=== PATIENT | male | born 1965 | race Caucasian/White ===

== ENCOUNTER 2018-04-09 14:27 | Emergency (ER) | payer SELFPAY ==
[2018-04-09 14:29] VITALS: BP 130/90; PULSE 103; RESP 18; TEMP 36.2; O2SAT 99; BMI 23.1
--- NOTE | 2018-04-09 14:47 | ED.RN ---
Pt waiting in triage 2, room getting ready.
[2018-04-09 15:41] LABS: Absolute Lymphocyte Count 1.34 X10^3/ul (0.83-4.51); Absolute Neutrophil Count 3.8 X10^3/uL (2.0-7.7); Basophil# 0.03 X10^3/uL; Basophil% 0.5 % (0-1); Eosinophil# 0.11 X10^3/uL; Eosinophils% 1.9 % (0-5); Hematocrit 47.1 % (40-54); Hemoglobin 16.5 g/dl (13.0-16.5); Lymphocyte # 1.34 X10^3/ul (4.0); Lymphocyte % 23.5 % (19-41); Mean Corpuscular Hgb 32.2 pg (27.0-32.0); Mean Platelet Vol. 9.8 fl (6.2-12.0); Monocyte# 0.41 X10^3/uL; Monocyte% 7.2 % (0-10); Neutrophil # 3.81 X10^3/uL (2.7-7.7); Neutrophil % 66.7 % (47-70); Platelet Count 238 K/mm3 (150-450); RBC Distribution Width CV 12.9 % (11.6-14.6); Red Blood Count 5.12 M/mm3 (4.6-6.2); White Blood Count 5.7 K/mm3 (4.4-11.0)
[2018-04-09 15:52] LABS: Anion Gap 7 (5-15); BUN 12 mg/dL (7-18); BUN/Creat Ratio 10.8 RATIO (10-20); Calcium,Total 9.1 mg/dL (8.5-10.1); Chloride 105 mmol/L (98-107); Creatinine, Serum 1.11 mg/dL (0.70-1.30); EST Glomerular Filtration Rate 74 mL/min (>60); Est Glom Filt Rate - Afr Amer 90 mL/min (>60); Estimated Creatinine Clearance 73.61 ml/min; Glucose 116 mg/dL (74-106); Potassium 3.7 mmol/L (3.5-5.1); Sodium Level 139 mmol/L (136-145)
--- NOTE | 2018-04-09 15:53 | ED.VISSUMM ---
- ER Visit Summary Date of Service: 04/09/18 Chief Complaint: Breast and suicidal History of Present Illness: The patient is a 53 M past medical history of depression, anxiety and hypertension. Currently is on an antidepressant he does not know the name of it. He states he is not seeing the counseling center. States recently he and his girlfriend of 4 years broke up. This is making him more depressed. He denies any suicide attempt. Said he did think of taking all his medications. He called the suicide hotline. Who had the police arrived at his home and paramedics and they brought him in. He was pink slipped. He states now that he is not suicidal. Ever having a suicide attempt. Or ever needing to be hospitalized for psychiatric care. Physical Examination: Well-appearing middle-age male. Vital signs are stable and afebrile. He is calm and cooperative. He is in no distress. There is no alcohol and no signs of toxidrome. HEENT exam unremarkable. No signs of trauma. Pupils round reactive light. Neck nontender. No signs of ligature barba. Or trauma. Lungs clear to auscultation bilaterally. Heart regular rhythm no murmur. Chest wall nontender. Abdomen soft nontender. Patient is moving all 4 extremities. Neurovascular intact. No signs of trauma. No track barba. Back nontender. Neurologically he is awake and alert. No focal motor deficits. Test Results: ED mental health screening labs. CBC normal. BMP normal. Tox screen negative. Alcohol negative. Emergency Department Course and Treatment: Patient will be evaluated by crisis and disposition will be determined. Currently at this time he does not seem to be in distress or actively suicidal. It is concerning with the threat that he did make. On repeat exam patient is doing well at 1615 p.m. Treatment Plan: Patient will be turned over to the afternoon physician. Awaiting crisis evaluation. Disposition: [] Impression: Acute on chronic depression Suicidal ideation This note was generated with [employer] dictation software. It may contain incorrect words, spelling, and punctuation that were not noted in review of the chart prior to signing ED Disposition - Plan for ED Patient: Chief Complaint: Suicidal Referrals: Juan F Tellez MD [Primary Care Provider] -
[2018-04-09 15:57] LABS: POSITIVE COUNT NO; POSITIVE DIFFERENTIAL NO; POSITIVE MORPHOLOGY NO
--- NOTE | 2018-04-09 15:59 | ED.DCSUM_ITS ---
- ER Visit Summary Date of Service: 04/09/18 Chief Complaint: Breast and suicidal History of Present Illness: The patient is a 53 M past medical history of depression, anxiety and hypertension. Currently is on an antidepressant he does not know the name of it. He states he is not seeing the counseling center. States recently he and his girlfriend of 4 years broke up. This is making him more depressed. He denies any suicide attempt. Said he did think of taking all his medications. He called the suicide hotline. Who had the police arrived at his home and paramedics and they brought him in. He was pink slipped. He states now that he is not suicidal. Ever having a suicide attempt. Or ever ne eding to be hospitalized for psychiatric care. Physical Examination: Well-appearing middle-age male. Vital signs are stable and afebrile. He is calm and cooperative. He is in no distress. There is no alcohol and no signs of toxidrome. HEENT exam unremarkable. No signs of trauma. Pupils round reactive light. Neck nontender. No signs of ligature barba. Or trauma. Lungs clear to auscultation bilaterally. Heart regular rhythm no murmur. Chest wall nontender. Abdomen soft nontender. Patient is moving all 4 extremities. Neurovascular intact. No signs of trauma. No track barba. Back nontender. Neurologically he is awake and alert. No focal motor deficits. Test Results: ED mental health screening labs. CBC normal. BMP normal. Tox screen negative. Alcohol negative. Emergency Department Course and Treatment: Patient will be evaluated by crisis and disposition will be determined. Currently at this time he does not seem to be in distress or actively suicidal. It is concerning with the threat that he did make. On repeat exam patient is doing well at 1615 p.m. Treatment Plan: Patient will be turned over to the afternoon physician. Awaiting crisis evaluation. Disposition: [] Impression: Acute on chronic depression Suicidal ideation This note was generated with [employer] dictation software. It may contain incorrect words, spelling, and punctuation that were not noted in review of the chart prior to signing ED Disposition - Plan for ED Patient: Chief Complaint: Suicidal Referrals: Juan F Tellez MD [Primary Care Provider] -
[2018-04-09 16:08] LABS: Amphetamine Urine VISTA NEGATIVE (<1000 ng/mL); Barbiturate Urine VISTA NEGATIVE (< 200 ng/mL); Benzodiazepine Urine VISTA NEGATIVE (< 200 ng/mL); Cocaine Urine VISTA NEGATIVE (< 300 ng/mL); Ecstacy Urine VISTA NEGATIVE (< 500 ng/mL); Methadone Urine VISTA NEGATIVE (< 300 ng/mL); PCP Urine VISTA NEGATIVE (< 25 ng/mL); THC Urine VISTA NEGATIVE (< 50 ng/mL); Vista UDS pH Range 7
[2018-04-09 16:25] VITALS: RESP 16; O2SAT 97
[2018-04-09 17:04] VITALS: PULSE 78; RESP 16; O2SAT 100
[2018-04-09 18:15] VITALS: RESP 16; O2SAT 98
--- NOTE | 2018-04-09 18:18 | ED.DCSUM_ITS ---
- ER Visit Summary Date of Service: 04/09/18 Chief Complaint: [] History of Present Illness: The patient is a 53 M [] Physical Examination: [] Test Results: [] Emergency Department Course and Treatment: [] Treatment Plan: [] Disposition: [] Impression: [] This note was generated with [employer] dictation software. It may contain incorrect words, spelling, and punctuation that were not noted in review of the chart prior to signing ED Disposition - Plan for ED Patient: Disposition: Home or Assisted Living Chief Complaint: Suicidal Instructions: ED Depression Referrals: Juan F Tellez MD [Primary Care Provider] - Counseling,Center [GROUP OF PHYSICIANS] - Keep Caroline appointment
[2018-04-09 18:40] VITALS: BP 136/88; PULSE 74; RESP 16; O2SAT 100
== END 2018-04-09 18:45 | disposition home or self-care (01) ==
PROVIDERS: Emergency Provider Emergency Medicine; Family Provider Family Medicine; PCP Family Medicine
DX: F32.9 Major depressive disorder, single episode, unspecified (principal); R45.851 Suicidal ideations; F41.9 Anxiety disorder, unspecified; I10 Essential (primary) hypertension; Z72.0 Tobacco use
CPT/HCPCS: 80048; 80307; 80320; 85025; 99282; G0480

== ENCOUNTER → 2019-04-21 11:49 | Outpatient (CLI) | payer OTHER, SELFPAY ==
[2019-04-21 11:49] VITALS: BMI 23.1
--- NOTE | 2019-04-21 11:55 | RAD_ITS ---
STUDY: X-RAY - CERVICAL SPINE REASON FOR EXAM: Male, 54 years old. Pain. TECHNIQUE: 5 view(s) of the cervical spine were obtained. COMPARISON: None FINDINGS: There are degenerative changes of the anterior atlantoaxial articulation. Normal odontoid process. There is reversal of the normal cervical lordosis. There is multi-level endplate spondylosis. There is multi-level degenerative disc disease with multilevel disc space narrowing. This is more significant at C5-C6 and C6-C7. Normal visualized intervertebral neuroforamina. The soft tissue structures are unremarkable. There is no demonstrated fracture of the cervical spine. RAD/Cerv Spine 4 or 5 Views IMPRESSION: No acute fracture or subluxation. Underlying degenerative disease as described above. Mild reversal of physiological cervical lordosis which may be due to muscular spasm versus degenerative disease. Electronically Signed: Elly Serrano MD at 0:18 EST , Service support ,
== END ==
PROVIDERS: Family Provider Family Medicine; PCP Family Medicine; Referring Provider Physician Assistant; Visit Provider Physician Assistant
DX: S16.1XXA Strain of muscle, fascia and tendon at neck level, initial encounter (principal)
CPT/HCPCS: 72050

== ENCOUNTER 2019-04-28 14:00 | Outpatient (RCR) | payer OTHER, SELFPAY ==
[2019-04-21 11:49] VITALS: BMI 23.1
--- NOTE | 2019-04-23 14:43 | HP.PTEVAL_ITS ---
Patient's Visit Information TYSON TRAN . is a 54 year old M referred to Physical Therapy by JOYCE Thomson with a diagnosis of cervial muscle strain, thoracic strain./ shoulder strain.. Date of Evaluation: 04/23/19 Physical Therapist: Bubba Rendon, DPT, OCS, CSCS - Visit Plan Frequency: 3x /Week Duration: 4-6 Weeks Plan: 3x/week for 4 weeks.. 1. STM pericervical and scap muscles. 2. MH and ES as needed/helpful to neck. 3. A/PROM neck and scapula progressing to strengthening and stretching when tolerated. 4. Return to function when ROM normalizing. 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 That was last week one week ago. [facility]ook to [facility] adn diagnosed with neck strain. Did x ray. Gave flexeril and steroid whcih he is still on. Still painful though like a really bad migraine in back of head and neck. Better if neck still, worse with any movement. L shoulder is sore also. constant. No previous neck or shoulder problems. Hard to get more than an hour of sleep due to comfort, normal is 6. Works at [employer] in [employer]. been off for the last week. Will go back tomorrow sitting. Basic ADLs are OK just painful. Live with in one story house and getting around in house OK. Hobbies include [employer], prior to this was mostly working. Denies chest pain or UE numbness or tingling today. Coughing hurts and does so gently today. - Pain neck Pain Intensity (Out of 10): 7 Pain Intensity Range: 3, 7 - Objective Posture is not terrible with head slightly forward adn scapula slightly elevated but looks fearful to move adn very stiff. Tender in all soft tissue on neck L >R adn UT and scalenes and lev scap. c/s aROM L roation 35 and R 30 with L pain, ext 15 and pain L neck. 20 degrees SB. Increases pain to move trasniently. UE AROM full without much increased pain. reflexes 2/3 biceps and triceps. Strength UE 4-/5 throughout with some pain with flexion of shoulders and abd transiently. Sensation in UE WNL to gross light touch. Unable to tolerate repeated motion today. - c/s compression test. - HK and - neer on L and R. - Goals Goal 1:: 50 rotation adn 50 ext c/s without increased pain Goal Time Frame: 4-6 Weeks Goal 2:: Pt feel 90% better and sleep without waking at night. Goal Time Frame: 4-6 Weeks Goal 3:: Pt ready to return to fu duty at work Goal Time Frame: 4-6 Weeks Goal 4:: I approp. HEP to continue to improve. Goal Time Frame: 4-6 Weeks Goal 5:: <20% disability on neck oswestry - Rehabilitation Potential Physical Therapy Diagnosis: cervical muscle strain. Rehabilitation Potential: Fair - Anticipated Interventions Patient/Client Instruction: Educate patient on: Condition, Plan of Care For the Purpose of:: To decrease pain, To increase ROM, To increase tolerance to activity/condition/position, To improve ability of physical actions for home/community/work/leisure Therapeutic Exercise to Include: Strength training, Postural training, Flexibilty training, Passive ROM, Active ROM, Scapular Strength/Stabilization For the Purpose of:: To decrease pain, To increase ROM, To improve muscle performance and motor function, To increase tolerance to acti vity/condition/position, To improve ability of physical actions for home/community/work/leisure Manual Therapy Techniques to Include: Mobilization, Passive ROM, Soft tissue mo bilization For the Purpose of:: To decrease pain, To increase ROM TENS: Yes Thermo therapy (hot pack): Yes For the Purpose of:: To decrease pain, To increase ROM Thank you for the opportunity to evaluate your patient. For Medicare and Medicare HMO plans, please review the plan of care and approve it. It will need to be FAXED BACK to us at [phone] for Medicare purposes. For Medicare only, by signing this I certify the plan of care. Please let me know if there are questions or concerns regarding this plan of care. Physician Signature: Date:
--- NOTE | 2019-06-10 15:00 | HP.PT.NRP ---
HP - Discharge Summary (1) - Patient Information TYSON TRAN Sr. was seen in my office for initial evaluation on 04/23/19. The following Plan of Care was established for this patient: Initial Frequency: 3x /Week Initial Duration: 4-6 Weeks - Anticipated Interventions Patient/Client Instruction: Educate patient on: Condition, Plan of Care For the Purpose of:: To decrease pain, To increase ROM, To increase tolerance to activity/condition/position, To improve ability of physical actions for home/community/work/leisure Therapeutic Exercise to Include: Strength training, Postural training, Flexibilty training, Passive ROM, Active ROM, Scapular Strength/Stabilization For the Purpose of:: To decrease pain, To increase ROM, To improve muscle performance and motor function, To increase tolerance to activity/condition/position, To improve ability of physical actions for home/community/work/leisure Manual Therapy Techniques to Include: Mobilization, Passive ROM, Soft tissue mobilization For the Purpose of:: To decrease pain, To increase ROM TENS: Yes Thermo therapy (hot pack): Yes For the Purpose of:: To decrease pain, To increase ROM This patient was last seen in our office 04/28/19. Pertinent comments regarding their Physical therapy will appear below: Pt seen 3 visits and seemed to be responding positively. He no showed for the next three visits neglecting to schedule any further. At this point, it has been over a month and I will discontinue due to nonattendance. At this point I will be discontinuing this patient from physical therapy. I would be happy to see this patient again in the future if found appropriate by the physician. Thank you! Bubba Rendon, DPT, OCS, CSCS
== END 2019-04-28 19:00 | disposition home or self-care (01) ==
LOC: PT 14:00
PROVIDERS: Family Provider Family Medicine; PCP Family Medicine; Referring Provider Physician Assistant; Visit Provider Physician Assistant
DX: S16.1XXD Strain of muscle, fascia and tendon at neck level, subsequent encounter (principal); S29.019D Strain of muscle and tendon of unspecified wall of thorax, subsequent encounter; S46.819D Strain of other muscles, fascia and tendons at shoulder and upper arm level, unspecified arm, subsequent encounter
CPT/HCPCS: 97014; 97140; 97162; G0283

== ENCOUNTER 2021-10-18 13:31 | Emergency (ER) | payer SELFPAY ==
[2021-10-18 13:33] VITALS: BP 155/88; PULSE 93; RESP 16; TEMP 36.8; O2SAT 98; BMI 25.2
--- NOTE | 2021-10-18 14:17 | RAD_ITS ---
STUDY: X-RAY - LUMBAR SPINE REASON FOR EXAM: Male, 56 years old. One-week history of low back pain. TECHNIQUE: view(s) of the lumbar spine were obtained. COMPARISON: None FINDINGS: There is straightening of the normal lumbar lordosis. There is no substantial scoliosis. There is a normal alignment of the vertebrae. Mild degree of anterior spondylolisthesis at the L4-L5 level. Normal disc space heights. The soft tissue structures are unremarkable. RAD/Lumbar Spine 2 or 3 Views IMPRESSION: Mild degree of anterior spondylosis at the L4-L5 level. Loss of the normal lumbar lordosis. Electronically Signed: Sukumar Johnson MD at 14:56 EDT ,
--- NOTE | 2021-10-18 14:18 | ED.VIS.BACK ---
HPI History of Present Illness Chief Complaint: Lower Extremity Injury Narrative Narrative: 56-year-old male presenting with back pain. He states the lumbar spine. He states last week he noticed he had some pain in his right hip and was able to stretch this out, and now returning in his lower back. 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 He repeatedly lifts over 100 pounds over his head throughout the day. Denies any direct trauma. No paresthesias. The pain in his lower back seems to radiate to the left gluteal region. Patient is ambulatory with antalgic gait. He states has been using Aleve at home with some relief. He has tried some stretching exercises today but is not getting relief. No loss of bladder bowel control or saddle anesthesia. [facility] Medical History Back pain Hip pain Home Medications NK 10/18/21 [History Last Taken Unknown] Allergy/AdvReac Type Severity Reaction Status Date / Time No Known Allergies Allergy Verified 10/18/21 13:33 Social History Smoking Status: Current every day smoker tobacco type: cigarettes ROS ROS ED Constitutional Constitutional ED: Denies chills or fever(s) Eyes Eyes: Denies blurry vision or change in vision ENT ENT ED: Denies rhinorrhea Cardiovascular Cardiovascular: Denies chest pain or palpitations Respiratory/Chest Respiratory/Chest: Denies dyspnea, dyspnea on exertion or sputum Gastrointestinal Gastrointestinal: Denies abdominal pain, nausea or vomiting Genitourinary Genitourinary ED: Denies dysuria or hematuria Musculoskeletal Musculoskeletal: Reports back pain Integumentary Denies abscess or rash Neurologic Neurologic: Denies headache(s), paresthesias or weakness Psychiatric Psychiatric: Denies anxiety or depression Endocrine Endocrinology: Denies polydipsia or polyuria EXAM Physical Exam Const Vital Signs: 10/18/21 13:33 Temperature 98.2 F Temperature Source Temporal Pulse Rate 93 Respiratory Rate 16 Blood Pressure 155/88 H Blood Pressure Mean 110 Pulse Ox 98 Oxygen Delivery Method Room Air Positive well nourished General Appearance ED: NAD; Negative for pallor HEENT Reports moist mucous membranes trauma Eyes PERRL and EOMs intact bilaterally Resp normal respiratory effort and clear to auscultation bilaterally Cardio regular rate and regular rhythm GI normal to inspection, nondistended, normoactive bowel sounds Back/Spine Lumbar Spine / Lower Back: ROM limited, pain with ROM and paraspinal muscle tenderness left Pelvis: buttocks normal Sacrum: Negative for ecchymosis or swelling Coccyx: Negative for swelling or tenderness Extremity normal to inspection General Extremety ED: Negative for edema or tenderness General Extremity: Negative for edema Psych mental status grossly normal Skin no rashes or lesions noted and no wounds General Skin Exam: Negative for jaundice or pallor MDM MDM MDM Narrative Medical decision making narrative: Patient given Toradol and a Lidoderm patch. He states that this did not help significantly but also states he does not want anything stronger. He states he does not want to feel high. I did obtain imaging of the lumbar spine which on my interpretation showed no acute fractures but there is some mild spondylosis at the level L4-L5. Radiologist does agree and states there is loss of normal lumbar lordosis. This is consistent with muscular strain. I counseled patient on multiple exercises and stretching he can do to strengthen and stretch his back. He was given instructions to follow-up with his primary care if this is not resolving. He is given return precautions. Impression: 1. Lumbar strain 2. L4-L5 spondylosis Lab Data Attestation: I reviewed the patient's lab results. Radiography Diagnostic Testing: Clinical Impression(s) from Imaging Studies Lumbar Spine X-Ray 10/18/21 14:17 IMPRESSION: Mild degree of anterior spondylosis at the L4-L5 level. Loss of the normal lumbar lordosis. Electronically Signed: Sukumar Johnson MD at 14:56 EDT , Discharge Plan Triage Chief Complaint: Lower Extremity Injury ED Provider: Mina Frye Dx/Rx/DC Orders Instructions: Lumbar Extension (Flexibility), Lumbar Flexion (Flexibility), ED Back Sprain/Strain Prescriptions: No Action NK RF: 0 Primary Care Provider: Juan F Tellez Referrals: Juan F Tellez MD [Primary Care Provider] - Disposition Disposition: Home, Self Care
[2021-10-18] MEDS: Lidocaine 5% Patch 1 PATCH TOPICAL (14:24)
[2021-10-18] MEDS: Ketorolac 15 MG/ML Vial IM (14:24)
[2021-10-18 15:29] VITALS: BP 124/66; PULSE 82; RESP 15; O2SAT 98
== END 2021-10-18 15:29 | disposition home or self-care (01) ==
PROVIDERS: Emergency Provider Student in an Organized Health Care Education/Training Program; PCP Family Medicine; Visit Provider Student in an Organized Health Care Education/Training Program
DX: S39.012A Strain of muscle, fascia and tendon of lower back, initial encounter (principal); M47.816 Spondylosis without myelopathy or radiculopathy, lumbar region; F17.210 Nicotine dependence, cigarettes, uncomplicated; X50.0XXA Overexertion from strenuous movement or load, initial encounter
CPT/HCPCS: 72100; 99283

== ENCOUNTER 2023-09-05 12:40 | Emergency (ER) | payer SELFPAY ==
[2023-09-05 12:40] VITALS: BP 171/95; PULSE 95; RESP 16; TEMP 36.6; O2SAT 99; BMI 24.3
--- NOTE | 2023-09-05 12:43 | RAD_ITS ---
STUDY: X-RAY - LEFT SHOULDER REASON FOR EXAM: Male, 58 years old. Injury. Fall over baby gate. TECHNIQUE: 4 views of the left shoulder. COMPARISON: None. FINDINGS: Normal glenohumeral articulation. There is mild acromioclavicular arthrosis. Normal acromion. Normal humeral head and visualized proximal humerus. The soft tissue structures are unremarkable. There is no demonstrated fracture. Normal visualized pulmonary apex. RAD/Shoulder min 2 Views IMPRESSION: Mild acromioclavicular arthrosis. No demonstrated fracture. Electronically Signed: Gus Alegria MD at 13:03 EDT ,
--- NOTE | 2023-09-05 15:47 | EDS_ITS ---
HPI History of Present Illness Chief Complaint: Fall Narrative Narrative: 58-year-old male presenting with left shoulder pain. He states he was trying to step over a baby gate and caught his right foot and then his arm without in front of him and he fell forward he states his hand planted but his shoulder felt like it tore. He is unable to lift his arm over his head forward or sideways. The states it hurts in the anterior and posterior aspect of the shoulder. He denies any numbness or tingling. No head injury or LOC. No neck pain PFSH PFSH Medical History Back pain Hip pain Home Medications NK 10/18/21 [History Last Taken Unknown] Allergy/AdvReac Type Severity Reaction Status Date / Time No Known Allergies Allergy Verified 09/05/23 12:42 Social History Smoking Status: Current every day smoker tobacco type: cigarettes ROS ROS ED Constitutional Constitutional ED: Denies chills, fever(s) or sweats Eyes Eyes: Denies blurry vision or change in vision ENT ENT ED: Denies ear pain or sore throat Cardiovascular Cardiovascular: Denies chest pain, palpitations or racing heartbeat Respiratory/Chest Respiratory/Chest: Denies cough, dyspnea or sputum Gastrointestinal Gastrointestinal: Denies abdominal pain, constipation, diarrhea, nausea or vomiting Genitourinary Genitourinary ED: Denies dysuria, hematuria or urinary frequency Musculoskeletal Musculoskeletal: Reports other Details: Left shoulder pain ; Denies arthralgias, myalgias or neck pain Integumentary Denies abscess, Abrasions or rash Neurologic Neurologic: Denies headache(s), paresthesias or weakness Psychiatric Psychiatric: Denies anxiety, depression, suicidal ideation or suicidal thoughts Endocrine Endocrinology: Denies polydipsia or polyuria EXAM Physical Exam Const Vital Signs: 09/05/23 12:40 09/05/23 15:39 Temperature 98 F Temperature Source Temporal Pulse Rate 95 Respiratory Rate 16 Respiratory Effort Normal Respiratory Depth Normal Respiratory Pattern Normal Blood Pressure 171/95 H Blood Pressure Mean 120 Pulse Ox 99 Oxygen Delivery Method Room Air Positive well nourished General Appearance ED: NAD HEENT Reports moist mucous membranes normocephalic and atraumatic Eyes PERRL Chest Wall inspection of chest normal Resp normal respiratory effort Cardio regular rate and regular rhythm Extremity Extremity Narrative: Pain noted over the anterior posterior shoulder girdle. Limited range of motion and abduction flexion and extension. Consistent with rotator cuff tear. No bony tenderness. Neurovascular intact. Neuro oriented x3 and CN's II-XII intact bilaterally Sensorium / Orientation: alert Psych mental status grossly normal Skin Lesions: no lesions Rashes: no rashes MDM MDM MDM Narrative Medical decision making narrative: Patient presenting after fall and I believe he has a rotator cuff tear. He has pain in the anterior and posterior shoulder girdle. He does not want anything for pain. I will give him orthopedic follow-up. I recommended Tylenol and ibuprofen. Impression: 1. Mechanical fall 2. Rotator cuff tear left shoulder Radiography Diagnostic Testing: Clinical Impression(s) from Imaging Studies Shoulder X-Ray 09/05/23 12:43 IMPRESSION: Mild acromioclavicular arthrosis. No demonstrated fracture. Electronically Signed: Gus Alegria MD at 13:03 EDT Reading Location ID and State: [facility] / [place] , Service support , Discharge Plan Triage Chief Complaint: Fall ED Provider: Mina Frye Dx/Rx/DC Orders Prescriptions: No Action NK Primary Care Provider: Juan F Tellez Referrals: Juan F Tellez MD [Primary Care Provider] -
--- NOTE | 2023-09-05 17:32 | ED.RN ---
Pt waiting on Dr. Frye for reevaluation. Pt spoke to DYLAN Fraga in [facility] and stated I'm going to leave, I have better things to do DYLAN Fraga offered patient sling. Pt refused and left prior to receiving discharge instructions.
== END 2023-09-05 16:45 | disposition home or self-care (01) ==
PROVIDERS: Emergency Provider Student in an Organized Health Care Education/Training Program; PCP Family Medicine; Visit Provider Student in an Organized Health Care Education/Training Program
DX: M75.102 Unspecified rotator cuff tear or rupture of left shoulder, not specified as traumatic (principal); F17.210 Nicotine dependence, cigarettes, uncomplicated; W17.89XA Other fall from one level to another, initial encounter; Y93.89 Activity, other specified
CPT/HCPCS: 73030; 99282

== ENCOUNTER 2023-12-03 11:34 | Day surgery (SDC) | payer MEDICAID, SELFPAY ==
--- NOTE | 2023-11-20 11:25 | EKG12_ITS ---
Test Reason : PRE OP Blood Pressure : / mmHG Vent. Rate : 093 BPM Atrial Rate : 093 BPM P-R Int : 152 ms QRS Dur : 130 ms QT Int : 396 ms P-R-T Axes : 083 -28 114 degrees QTc Int : 492 ms Normal sinus rhythm Left bundle branch block Abnormal ECG Confirmed by ABAD DIAZ, ANTONIO ([id number]), pictures editor BAO CANAS ([id number]) on 11/21/2023 9:33:34 AM Referred By: Chapito Boateng Confirmed By:EVA MELGOZA MD
[2023-11-20 11:36] LABS: Hematocrit 44.5 % (40-54); Mean Corp Hgb Conc 33.7 g/dL (32-36); Mean Corpuscular Hgb 31.2 pg (27.0-32.0); Mean Corpuscular Volume 92.5 fL (80-94); Mean Platelet Vol. 9.4 fl (6.2-12.0); Platelet Count 253 K/mm3 (150-450); RBC Distribution Width CV 13.2 % (11.6-14.6); RBC Distribution Width SD 44.6 fl (35.1-43.9); Red Blood Count 4.81 M/mm3 (4.6-6.2); White Blood Count 6.4 K/mm3 (4.4-11.0)
[2023-12-03] VITALS (9 sets, daily range): BP systolic 127–150; BP diastolic 67–92; PULSE 87–117; RESP 16–20; TEMP 36.3–36.6; O2SAT 97–100; BMI 23.8
[2023-12-03] MEDS: Lactated Ringers 1,000 ML 15 ML IV (12:22)
--- NOTE | 2023-12-03 13:02 | PCM.PRE.AN2 ---
ASA Classification* ASA Classification ASA Classification: 2 Assessment & Plan Anesthesia* Anesthesia Assessment Anesthesia Assessment: Discussed sedation and/or anesthesia options, risks, benefits, and alternatives with patient/parents/legal guardian/POA. Questions invited. The patient/parents/legal guardian/POA seems to understand and agrees to proceed with anesthesia plan. Reviewed the physical assessment, medical history, allergy history and patient home medications list prior to surgery/procedure/anesthetic and documented any changes. Performed airway and anesthesia risk assessments. Anesthesia Type Anesthesia Type: General (consented for block. wants no narcotics in recovery room if possible) Anesthesia Focused Assessment* Temperature: 97.9 F Pulse Rate: 87 Blood Pressure: 150/92 Respiratory Rate: 17 Pulse Ox: 99 Airway Assessment Mouth opens: >3 cm Mallampati Score: II Focused Labs Anesthesia Preop lab: CBC WBC 6.4 K/mm3 (4.4-11.0) 11/20/23 11:21 RBC 4.81 M/mm3 (4.6-6.2) 11/20/23 11:21 Hgb 15.0 g/dL (13.0-16.5) 11/20/23 11:21 Hct 44.5 % (40-54) 11/20/23 11:21 Plt Count 253 K/mm3 (150-450) 11/20/23 11:21 CHEMISTRY Potassium 3.7 mmol/L (3.5-5.1) 04/09/18 15:30 Sodium 139 mmol/L (136-145) 04/09/18 15:30 BUN 12 mg/dL (7-18) 04/09/18 15:30 Creatinine 1.11 mg/dL (0.70-1.30) 04/09/18 15:30 Glucose 116 mg/dL (74-106) H 04/09/18 15:30 COAG PT 13.1 SECONDS (11.9-14.4) 05/17/13 07:45 Pre-Assessment Diagnosis/Proposed Procedure Planned Operative Procedure(s): (L) Arthroscopy,Shoulder Rotator Cuff Repair with Mini Open Biceps Tenodesis Anesthesia History 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 When Was Last Pacemaker Check QUESTION #4 FULL TEXT: You/Your Family Experience fever (hyperthermia) with Anesthesia Last Oral Intake Last Oral intake: Last Oral Intake NPO since 21:00 12/03/23 12:29 Meds taken in AM with sips of No 12/03/23 12:29 water? Meds patient instructed to take am of surgery PONV PONV - assistant boys track coach: PONV - assistant boys track coach Female No 11/15/23 08:19 HX of Motion Sickness No 11/15/23 08:19 HX of N/V After Surgery No 11/15/23 08:19 Non-Smoker No 11/15/23 08:19 Duration of Surgery greater Yes 11/15/23 08:19 than 60 minutes Number of Risk Factors 1 11/15/23 08:19 PONV Score Low Risk 11/15/23 08:19 Height & Weight Height & Weight: Anesthesia: Height & Weight Height 5 ft 7 in 12/03/23 12:29 Weight: 69 kg 12/03/23 12:29 Body Mass Index (BMI) 23.8 12/03/23 12:29 Respiratory Assessment Respiratory Assessment - assistant boys track coach: Respiratory Tract Infection Hx - assistant boys track coach Hx Respiratory Tract Infection No 11/15/23 08:19 STOP Sleep Apnea STOP Sleep Apnea - assistant boys track coach: STOP Sleep Apnea - assistant boys track coach Hx Hypertension No 11/15/23 08:19 Hx Sleep Apnea No 11/15/23 08:19 CPAP No 05/01/19 12:24 BIPAP No 05/01/19 12:24 Do you snore loudly (louder No 11/15/23 08:19 than talking or can be heard Do you often feel tired/ No 11/15/23 08:19 fatigued/ sleepy during daytime? Has anyone observed you stop No 11/15/23 08:19 breathing during sleep? STOP Results Negative 11/15/23 08:19 QUESTION #5 FULL TEXT : Do you snore loudly (louder than talking or can be heard through closed doors)? 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 Specify any problems Hx of Preganancy in last 3 N/A 11/15/23 08:19 Months Nurse Filling Out Transfusion EHFORMAN 11/15/23 08:19 & Questions: Date: 11/15/23 11/15/23 08:19 Time: 08:25 11/15/23 08:19 Patient unable to answer at this time (ie. confused, unrespo /Reproduction History /Reproductive History - assistant boys track coach: /Reproductive Hx- assistant boys track coach Hx Now Gestational Age (in weeks): EDC: Hx Hx Para Hx Section SAB Active Medications Active Medications: Current Medications Generic Name Dose Route Start Last Admin Trade Name Freq PRN Reason Stop Dose Admin Cefazolin Sodium 2 gm/ Sodium 110 mls @ 150 mls/hr 12/03/23 15:05 Chloride IV 12/03/23 15:48 PREOP ONE Lactated Ringer's 1,000 mls @ 15 mls/hr 12/03/23 12:00 12/03/23 12:22 IV 15 mls/hr .Q48H ARIANNE Administration PFSH Medical History Heart abnormality Difficulty swallowing Gastric reflux Smoker History of stress test Back pain Hip pain Home Medications ?Medication ?Instructions ?Recorded ?Last Taken ?Type carvedilol 6.25 mg tablet 3.125 mg PO BID 12/03/23 11/26/23 History Allergy/AdvReac Type Severity Reaction Status Date / Time No Known Allergies Allergy Verified 12/03/23 12:22 Surgical History History of esophagogastroduodenoscopy (EGD) Social History Smoking Status: Current every day smoker tobacco type: cigarettes Review of Systems (Anesthesia) ROS Narrative System reviewed and no additional complaints, except as documented.
[2023-12-03 13:12] LABS: Anion Gap 5 (5-15); BUN 11 mg/dL (7-18); BUN/Creat Ratio 11.7 RATIO (10-20); Calcium,Total 9.2 mg/dL (8.5-10.1); Chloride 109 mmol/L (98-107); Creatinine, Serum 0.94 mg/dL (0.70-1.30); EST Glomerular Filtration Rate 88 mL/min (>60); Est Glom Filt Rate - Afr Amer 107 mL/min (>60); Estimated Creatinine Clearance 82.04 ml/min; Glucose 106 mg/dL (74-106); Potassium 3.9 mmol/L (3.5-5.1); Sodium Level 139 mmol/L (136-145)
[2023-12-03] MEDS: Cefazolin 2 GM in 0.9% Normal Saline (100mL Bag) 100 ML IV (14:11)
[2023-12-03] MEDS: Epinephrine (1 mg/ml) 1 MG/ML VIAL (14:40)
[2023-12-03] MEDS: Bupiv/Epi 0.25% 30 ML Vial (15:40)
--- NOTE | 2023-12-03 15:50 | OP.PCM_ITS ---
Report of Operation Date of Procedure: 12/03/23 Description of Surgical Findings:: Preoperative diagnosis: 1. Left shoulder rotator cuff tear 2. Left shoulder SLAP tear Postoperative diagnosis: 1. Left shoulder rotator cuff tear 2. Left shoulder SLAP tear Procedure 1. Left shoulder arthroscopic rotator cuff repair 2. Left shoulder mini open subpectoral biceps tenodesis Surgeon: Chapito Boateng DO Track Layer: Conchita Thomas PA-C Anesthesia: General LMA with interscalene block Deputy Director: Vicente Nichols CRNA Estimated blood loss: 5 cc IV fluids: Per anesthesia record Urine output: None recorded Packing/drains: None Implants: Arthrex fiber tack RC x 2, Arthrex 4.75 mm bio composite swivel lock anchor x 2, Biceps Button x 1 Preoperative indications: This is a active 58-year-old male seen in the outpatient setting with acute onset Left shoulder pain. He had profound weakness in his supraspinatus. MRI demonstrated a full-thickness tear of the supraspinatus. I recommend surgical intervention in the form of Left shoulder arthroscopic rotator cuff repair. Patient also had evidence of a chronic SLAP tear and biceps tenodesis was recommended. Informed consent was obtained in the outpatient setting. Risks, benefits, terms the procedure reviewed with the patient at length and he agreed to proceed. Risk included but were not limited to bleeding, infection, loss of life or limb, need for additional surgery, persistent pain, nonhealing tendon or wounds, stiffness, neurovascular injury, DVT or PE. Patient expressed understanding of these risks and wished to proceed with surgery. Description of procedure: Patient was identified in preoperative holding area by name, medical record number, and date of . The operative extremity was marked. All questions were answered to the patient's satisfaction. An interscalene block was administered by anesthesia prior to the procedure. Patient was then brought to the operative suite at time of his procedure. He was positioned supine a sterile operating table. General anesthesia was induced and LMA was placed. Patient was then placed in lateral decubitus position with the Left side up. A beanbag was used to hold the patient in the lateral decubitus position. An axillary roll was placed. Pillows were placed beneath and between his legs to for any bony prominences. We prepped and draped the Left upper extremity in normal, sterile orthopedic fashion. The operative extremity was placed in traction utilizing arthroscopic bedroom with 15 pounds of tension applied to the operative extremity throughout the arthroscopic portion of the case. We performed a timeout with all parties in attendance in agreement with the side, site, and operation be performed. No concerns were voiced and we elected to proceed with surgery. 2 g Ancef was administered IV prior to incision by anesthesia staff. I first established a standard posterior portal 2 fingerbreadths inferior medial to the posterior lateral border of the scapular spine. Blunt tipped trocar and arthroscopic cannula was introduced into the glenohumeral joint. Joint was inflated with normal saline with epinephrine. Arthroscope was then introduced. Diagnostic arthroscopy was commenced. Anterior interval portal was established. Full-thickness tearing was noted at the supraspinatus with a bare footprint. Type II SLAP tear was encountered after biceps peelback was positive. Biceps tenotomy was performed at the biceps labral junction with arthroscopic cautery. Remaining labrum was debrided with arthroscopic shaver. Articular side supraspinatus was debrided with the shaver. Glenohumeral cartilage was pristine. Laminar tearing without retraction was seen of the subscapularis. I then turned my attention to the subacromial space. Arthroscopic instruments were removed. I reentered the shoulder in the subacromial space with blunt tip ped trocar. Standard lateral portal was established with an 11 blade scalpel. Passport was placed for suture management during rotator cuff repair. I then skeletonized the undersurface of the acromion. I then exposed the supraspinatus footprint with the cautery device. The footprint was lightly decorticated with a bur. Bursal side of the tendon tissue was debrided with a radial resector. After debridement of degenerative tendon tissue, a tear of approximately 1 x 1 cm was noted. I then proceeded with double row fixation. Via percutaneous portal, 2 fiber tack RC anchors were placed. Sutures were retrieved out the anterior portal. I then sequentially passed each limb of of the conjoint suture through the musculotendinous junction of the supraspinatus.. A total of 4 suture strands were placed through the supraspinatus tendon tissue near the musculotendinous junction. A single limb of each suture was then retrieved at the lateral portal and passed through the eyelet of a swivel lock anchor. Lateral row pilot can router holes were established with the vendor supplied punch. I then completed our lateral row with fixation with tensioning of the sutures and placed in the swivel lock anchor with excellent cortical purchase. Excellent compression and reapproximation of the supraspinatus to his nikolski footprint was achieved. I then thoroughly lavaged the subacromial space. Arthroscopic instruments were removed. Portal sites were closed in standard fashion with a [id number] 3- 0 nylon suture. I then turned my attention to the biceps tendon. The arm was brought out of traction. An oblique incision was made along the inferior surface of the pectoralis major tendon approximately 2 cm in length. Superficial bleeders were cauterized. Blunt dissection was carried down to the level of the fascia. Fascia was opened inferior to the pectoralis major tendon. The tendon was then retracted laterally with a Hohmann retractor. The short head biceps tendon was retracted medially with a Hohmann retractor. Long head biceps tendon was identified and retrieved out of the wound. There was longitudinal tearing in the region of the bicipital groove. I proceeded with a whipstitch fixation with a #2 FiberWire. This was performed near the musculotendinous junction. The intercalary portion of the tendon was then excised. I then drilled unicortically in the subpectoral region of the humerus. Sutures were passed alternating through a biceps button the button was placed and deployed in the intramedullary canal of the humerus. Sutures were tensioned and tied. Wound was copiously irrigated normal saline solution. I anesthetized this wound with 20 cc total quarter percent bupivacaine with epinephrine. This incision was then closed in layers with interrupted buried 3-0 Vicryl suture and running subcuticular 4-0 Monocryl and Dermabond. Bulky sterile compression dressing was applied. Patient was placed in UltraSling. She tolerated the procedure well without apparent complication. She was safely awoken the operative suite and extubated. She was transferred to his gurney and subsequently to PACU in stable condition. Need for skilled preschool assistant principal: Conchita Thomas PA-C was critical to the outcome of the case. During the course of the procedure the physician preschool assistant principal played a vital role. Her intimate knowledge of my steps in the procedure aided in safe and expedient completion of the procedure. The PA played a vital role in positioning particularly in obtaining the appropriate positioning. The PA was also vital in the retraction of soft tissues during the exposure and protecting vital structures. The PA was also vital and obtaining tendon reduction and assisting with hardware placement. She also played a vital role in closure and sling application with my direct supervision. Post Operative Plan: Weightbearing: Nonweightbearing Left upper extremity, okay for pendulums. Range of motion of wrist elbow and hand as tolerated. Antibiotics: 2 g Ancef IV prior to incision DVT Prophylaxis: Aspirin enteric-coated 81 mg twice daily starting tomorrow Rico: None Dressing: Maintain dressing x 2 days then ok to shower X-Rays: 2 weeks postop in the office Pain Medication: Tylenol, Advil. Patient declined opioid rx. Follow-up: 2 weeks post-operatively with me in the office
--- NOTE | 2023-12-03 16:11 | PCM.POST.ANE ---
Anesthesia: Postop Eval I Current Vital Signs Temperature: 97.4 F Pulse Rate: 112 Blood Pressure: 149/82 Respiratory Rate: 16 Pulse Ox: 97 Oxygen Delivery Method: Room Air Assessment Airway patent: Yes Spontaneous unlabored respirations: Yes Mental status: Awake and Calm nausea: No Vomiting: No Anesthesia Complication: No Fluid Hydration Crystalloid volume administer (ml): 1,400 Total IV fluid infused: 1,400 Progress Note Anesthesia document: Postop Eval 1 completed: Yes
[2023-12-03] MEDS: Ketorolac 15 MG/ML Vial IV (16:28)
[2023-12-03] MEDS: Albuterol 2.5 MG/3 ML VIAL.NEB. INHALATION (16:33)
--- NOTE | 2023-12-04 07:25 | PCM.POSTANE2 ---
Anesthesia Postop Eval I Sum Postop Eval Completion status Anesthesia document: Postop Eval 1 completed: Yes Anesthesia Postop Eval I Summary Anesthesia Postop Eval I Summary: Anesthesia Postop Eval I: Assessment Summary Airway patent Yes 12/03/23 16:15 Spontaneous unlabored Yes 12/03/23 16:15 respirations Mental status Awake,Calm 12/03/23 16:15 nausea No 12/03/23 16:15 Vomiting No 12/03/23 16:15 Anesthesia Postop Eval I: Fluid Summary Crystalloid volume administer 1,400 12/03/23 16:17 (ml) Colloids volume administered ( ml) Blood Product volume administered (ml) Total IV fluid infused 1,400 12/03/23 16:17 Anesthesia Postop Eval I: Summary Notes Anesthesia Complication No 12/03/23 16:15 Anesthesia Complication Comment: Post-operative progress note Anesthesia: Postop Eval II Evaluation Mental status: Awake Pain Level: 0 nausea: No Vomiting: No
== END 2023-12-03 17:19 | disposition home or self-care (01) ==
LOC: SDC 11:37 → AC 11:37
PROVIDERS: Anesthesiology; Referring Provider Student in an Organized Health Care Education/Training Program; Visit Provider Student in an Organized Health Care Education/Training Program
PROC: (CPT 29827; principal; 2023-12-03 13:55)
DX: S46.012A Strain of muscle(s) and tendon(s) of the rotator cuff of left shoulder, initial encounter (principal); S43.432A Superior glenoid labrum lesion of left shoulder, initial encounter; F17.200 Nicotine dependence, unspecified, uncomplicated; Z79.899 Other long term (current) drug therapy; W19.XXXA Unspecified fall, initial encounter; Z86.16 Personal history of COVID-19
CPT/HCPCS: 29827; 23430; 64415; 01630; 36415; 80048; 85027; 93005; 94640; C1713; J7120; J2405